=== PATIENT | female | born 1960 | race Two or more races ===

== ENCOUNTER 2020-11-24 08:53 | Inpatient (IN) | payer OTHER ==
[~2020-11-24] VITALS: Ht 162.6 cm; Wt 73.9 kg
[2020-11-24] MEDS ORDERED: VASOTEC20 M1 (09:05)
[2020-11-27] MEDS ORDERED: KETO10TA2 PO (08:42)
[2020-11-27] MEDS ORDERED: QUESTRAN PACKET4 GM PO (08:43)
[2020-11-27] MEDS ORDERED: NORFLEX100MG PO (08:43)
[2020-11-27] MEDS ORDERED: CIPRO500 MG PO (08:44)
[2020-11-27] MEDS ORDERED: METRONIDAZOLE500 MG PO (08:44)
[2020-11-27] MEDS ORDERED: INTESTINEX680 M1 PO (08:44)
== END 2020-11-27 19:47 | disposition home or self-care (01) | DRG 340 ==
LOC: ER 08:53 → SURH 15:33 → SEC-K 15:33 → SURH 16:59
PROVIDERS: ADMIT Surgery; ATTEND Surgery
PROC: 0DTJ4ZZ Resection of Appendix, Percutaneous Endoscopic Approach (ICD-10-PCS; principal; 2020-11-25 10:00)
DX: K35.33 Acute appendicitis with perforation, localized peritonitis, and gangrene, with abscess (principal); I10 Essential (primary) hypertension